=== PATIENT | male | born 1965 | race Caucasian/White ===

== ENCOUNTER 2025-04-22 11:50 | Outpatient (AMB) | payer OTHER, SELFPAY ==
--- NOTE | 2025-04-22 12:02 | MHC.PC.OV ---
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 [employer] Required: No Allergies Seasonal Allergies Allergy (Verified 04/22/25 12:07) Runny Nose Tobacco use date assessed: 04/22/25 Dental Screening Dental Screen Date: 04/22/25 Did you have a dental visit in the last 12 months?: Yes Did you have a dental problem in the last 6 months where you did not have access to dental care?: No Was dental information given to patient?: Patient has dentist HPI HPI Comments History of Present Illness Details 59-year-old male presents to establish care. Transferred from colleague in the practice. Taking Zyrtec, Arnuity and albuterol as needed for allergies and asthma. ADD, anxiety Patient has a psychiatrist through [facility]. He does have a therapist, but he has not [facility]rap[facility] is [facility]. He is on Ritalin and Lamictal. GERD-treated with omeprazole 20 mg daily. He had a colonoscopy at [facility] in August 2024. He had polyps and was told to return in 5 years. Maternal grandfather had colon cancer. Reports he had Shingrix vaccine in 2023. Patient seen at [facility] [place] for chronic left ankle pain. Received cortisone injections. He has ED. Saw urology. Patient had a coronary calcium CT on 09/03/2023, [place]at[place] 9. LDL 178. Patient has elevated liver enzymes. He was drinking more heavily for a few years. Now only drinking 1-2 bourbons per week. No abdominal pain. Prediabetes-hemoglobin A1c 5.8%. Patient had mildly decreased renal function. ROS: Constitutional: No unexplained weight loss, fever, chills, fatigue or night sweats. Respiratory: No shortness of breath Cardiovascular: No chest pain Neurologic: No headache, dizziness, syncope Physical exam: Constitutional: Alert, in no distress. Neck: Supple, Full range of motion. No lymphadenopathy. Respiratory: Clear to auscultation. Cardiovascular: S1 S2 regular. No murmurs Gastrointestinal: Abdomen soft, non-tender, non-distended. Normal bowel sounds. No palpable masses. Psychiatric: Normal mood and affect [facility] Medical History (Updated 04/23/25 @ 12:58 by GABY Estes) Pure hypercholesterolemia ADHD Colon polyp GERD (gastroesophageal reflux disease) Anxiety Encounter for special screening examination for neoplasm of prostate Rotator cuff injury Leg fracture Ankle fracture Tendinopathy of right biceps tendon Tendinopathy of left biceps tendon Stiffness of thumb joint Prediabetes Elevated liver enzymes Mild persistent asthma Allergic rhinitis Surgical History (Updated 04/22/25 @ 15:39 by Destini Rodney CMA) Hx of colonoscopy Family History (Updated 04/23/25 @ 12:54 by GABY Estes) Father Substance abuse Alcoholism Maternal Grandmother Breast cancer Maternal Grandfather Colon cancer Mother Breast cancer Social History (Updated 04/22/25 @ 12:12 by Destini Rodney CMA) Housing: Apartment Alcohol intake: current Patient Tobacco Use Status: Former Tobacco user Cigarette Packs Per Day: 1 Cigarettes Per Day: 15 Years Smoked: 4 e-Cigarette/Vaping Use: Currently Using Second Hand Smoke Exposure: No Substance Use Type: Marijuana service: No Current occupational status: unemployed Current occupational exposures/hazards: No Cognitive needs: No Hearing needs: No Vision needs: No Questionnaire PHQ-9 Over the last 2 weeks, how often have you been bothered by any of the following problems? 1. Little interest or pleasure in doing things: not at all 2. Feeling down, depressed, or hopeless: not at all 3. Trouble falling or staying asleep, or sleeping too much: not at all 4. Feeling tired or having little energy: not at all 5. Poor appetite or overeating: not at all 6. Feeling bad about yourself - or that you are a failure or have let yourself or your family down: not at all 7. Trouble concentrating on things, such as reading the newspaper or watching television: not at all 8. Moving or speaking so slowly that other people could have noticed. Or the opposite - being so fidgety or restless that you have been moving around a lot more than usual: not at all 9. Thoughts that you would be better off or of hurting yourself in some way: not at all Total score: 0 Depression Screening Interpretation: Negative Depression Screening Done: Yes 94016 - PHQ-9 Billing: Yes Source: Developed by Drs. Mal Rayo, Ivet Black, Douglas Lloyd and colleagues, with an educational arnulfo from [employer]. Thrive Questionnaire Date Thrive assessed: 04/22/25 I am a: Patient What is your living situation today?: I choose not to answer this question Within the past 12 months, did the food you bought not last and you didn't have the money to get more?: I choose not to answer this question Within the past 12 months, did you worry whether your food would run out before you got money to buy more?: I choose not to answer this question Do you have trouble paying for medicines?: I choose not to answer this question Do you have trouble getting transportation to medical appointments?: I choose not to answer this question Do you have trouble paying your heating and electricity bill?: I choose not to answer this question Do you have trouble taking care of your child, family member or friend?: I choose not to answer this question Do you have trouble with day-to-day activities such as bathing, preparing meals, shopping, managing finances, etc.?: I choose not to answer this question Are you currently unemployed and looking for a job?: I choose not to answer this question Are you interested in more education?: I choose not to answer this question Please select the resources that you would like help with: None Currently or been in a relationship where the following occur: No concerns reported THRIVE Score: 0 AUDIT C Alcohol Use Questionnaire (AUDIT-C) 1. How often do you have a drink containing alcohol?: 2-4 times a month 2. How many drinks containing alcohol do you have on a typical day when you are drinking?: 1 or 2 3. How often do you have six or more drinks on one occasion?: Never Total Score: 2 MATT-7 AMB Questionnaire MATT-7 Date MATT - 7 assessed: 04/22/25 Feeling nervous, anxious, or on edge: 0 = Not at all Not being able to stop or control worryin = Not at all Worrying too much about different things: 0 = Not at all Trouble relaxin = Not at all Being so restless that it is hard to sit still: 0 = Not at all Becoming easily annoyed or irritable: 1 = Several days Feeling afraid as if something awful might happen: 0 = Not at all Total MATT-7 score (0-4 normal; 5-9 mild; 10-14 moderate; 15-21 severe): 1 Source: Developed by Drs. Mal Rayo, Ivet Black, Douglas Lloyd and colleagues, with an educational arnulfo from [employer]. MATT-7 Assessment Billing MATT-7 Assessment Tool: MATT-7 Assessment 10183 Physical exam (Primary Care) Vital Signs: Last Vital Signs Temp 98.1 F 04/22/25 12:13 Pulse 74 04/22/25 12:13 Resp 16 04/22/25 12:13 BP 102/68 04/22/25 12:13 Pulse Ox 94 04/22/25 12:13 Oxygen Delivery Method Room Air 04/22/25 12:13 BMI result Body Mass Index 30.4 Tobacco/Smoking Status: Tobacco use Status Tobacco use date assessed 04/22/25 04/22/25 12:13 Patient Tobacco Use Status Former Tobacco user 04/22/25 12:13 e-Cigarette/Vaping Use Currently Using 04/22/25 12:13 PHQ-9: PHQ-9 Score PHQ-9: Total score 0 04/22/25 12:27 Depression Screening Interpretation: Negative Thrive Assessment: Date of Thrive Assessment Date Thrive assessed 04/22/25 04/22/25 12:06 Currently or been in a relationship where the following occur: No concerns reported Results Reviewed Results Reviewed: September 2024 reviewed lab results on phone cholesterol 262 Tg 146 LDL 178 glucose 93 Cr 1.4 GFR 55 ALT 60 AST 34 GGT 224 PSA 0.65 A1c 5.8% Coding Level of Care Code New Pt Level 4 (61060) Add On Problem Visit Only Diagnoses Seasonal allergic rhinitis due to other allergic trigger J30.89 Allergic rhinitis seasonality: seasonal Allergic rhinitis trigger: other Mild persistent asthma J45.30 Elevated liver enzymes R74.8 Prediabetes R73.03 ADHD F90.9 Pure hypercholesterolemia E78.00 Additional Codes MATT-7 Assessment Billing - MATT-7 Assessment Tool: MATT-7 Assessment 40530 ([id number]) PHQ-9 - 28934 - PHQ-9 Billing: Yes ([id number]) Assessment & Plan Assessment & Plan (1) Allergic rhinitis: Code(s): J30.9 - Allergic rhinitis, unspecified Category: Medical Qualifiers: Allergic rhinitis seasonality: seasonal Allergic rhinitis trigger: other Qualified Code(s): J30.89 - Other allergic rhinitis Plan: Refer to college president. Continue current regimen. (2) Mild persistent asthma: Code(s): J45.30 - Mild persistent asthma, uncomplicated Category: Medical Plan: Refer to college president. Continue current regimen. (3) Elevated liver enzymes: Code(s): R74.8 - Abnormal levels of other serum enzymes Category: Medical Plan: Recommended avoiding alcohol, decreasing processed foods and high-cholesterol foods. Recheck prior to physical exam. Check liver ultrasound. (4) Prediabetes: Code(s): R73.03 - Prediabetes Category: Medical Plan: Decrease carbohydrates and sugars and alcohol. Monitor. (5) ADHD: Code(s): F90.9 - Attention-deficit hyperactivity disorder, unspecified type Category: Medical Plan: Continue management per psychiatrist and therapist. (6) Pure hypercholesterolemia: Code(s): E78.00 - Pure hypercholesterolemia, unspecified Category: Medical Plan: We discussed elevated cholesterol is a risk factor for cardiovascular disease. He is considered low risk for this based on coronary CT scan. Recommended the Mediterranean diet and exercising regularly. Recheck cholesterol prior to physical exam. We discussed he may need medication to treat this. Need to repeat liver enzymes and have ultrasound done prior to initiating statin. If he has continued transaminitis we may need to consider an alternative such as Repatha or Praluent. Plan Schedule physical exam in September. Orders: Orders US abdomen cai w elastography 04/22/25 R74.8 - Abnormal levels of other serum enzymes Prostate Specific Antigen 04/22/25 R73.03 - Prediabetes, Z12.5 - Encounter for screening for malignant neoplasm of prostate TSH reflex Free T4 04/22/25 R73.03 - Prediabetes Lipid Panel 04/22/25 E78.5 - Hyperlipidemia, unspecified, R73.03 - Prediabetes Comprehensive Met. Panel 04/22/25 R73.03 - Prediabetes Complete Blood Count no Diff 04/22/25 R73.03 - Prediabetes Hemoglobin A1c 04/22/25 R73.03 - Prediabetes, R73.9 - Hyperglycemia, unspecified Referrals Allergy & Immunology Referral J30.9 - Allergic rhinitis, unspecified, J45.30 - Mild persistent asthma, uncomplicated
[2025-04-22 12:13] VITALS: BP 102/68; PULSE 74; RESP 16; TEMP 36.7; O2SAT 94; BMI 30.4
--- OUTSIDE RECORDS SUMMARY | 2025-04-22 15:43 | XMS_ITS | Clinical Summary ---
Author Organization [facility] Address [address] [facility] [address] [place] [address] Phone Care Team Providers Care Licensed Occupational Therapist Name Role Phone Zak Herron MD Unavailable [phone] Joe Ugarte MD Primary Care Provider Allergies Active Allergy Reactions Criticality Noted Date Comments Epinephrine 08/07/2017 Medications omeprazole (PRILOSEC) 20 MG capsule Take 1 capsule (20 mg total) by mouth daily. 90 capsule 3 0 Active Additional Information Patient not taking.Reported on 08/20/2023 dextroamphetamin e-amphetamine (ADDERALL) 15 mg Tab tablet Take 15 mg by mouth every morning. 1 Active albuterol 90 mcg/actuation inhalerIndicatio ns:Persistent cough Inhale 2 puffs into the lungs every 6 (six) hours as needed for wheezing. 1 Inhaler 1 Active Additional Information Patient not taking.Reported on 08/29/2022 triamcinolone acetonide 0.1 % creamIndications :Contact dermatitis, unspecified contact dermatitis type, unspecified trigger Apply topically 2 (two) times a day. Apply thin layer. No more than 2 wks. 30 g 3 Active Additional Information Patient not taking.Reported on 08/20/2023 oxyCODONE 5 MG immediate release tablet Take 1 tablet (5 mg total) by mouth every 4 (four) hours as needed. Partial fill okay upon patient request 20 tablet 03/14/202 4 Active Additional Information Patient not taking.Reported on 08/20/2023 tadalafiL (CIALIS) 5 MG tablet Take 1 tablet by mouth every morning. 4 Active loratadine (CLARITIN) 10 mg tabletIndication s:Allergic rhinitis, unspecified seasonality, unspecified trigger Take 1 tablet (10 mg total) by mouth daily. 90 tablet 4 4 Active atorvastatin (LIPITOR) 40 MG tablet Take 1 tablet (40 mg total) by mouth daily. 90 tablet 1 4 Active buPROPion (WELLBUTRIN XL) 150 MG ER 24 hr tablet Take 1 tablet (150 mg total) by mouth every morning. 90 tablet 3 4 Active lamoTRIgine (LAMICTAL) 150 MG IMMEDIATE release tablet Take 1 tablet (150 mg total) by mouth daily. 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 Mild intermittent asthma without complication Assessment & Plan (11/27/2017 4:57 PM EDT): Stable No need need for mdi Assessment & Plan (07/15/2017 3:05 PM EDT): torie mdi prn ETOH abuse 05/27/2017 Assessment & Plan (11/27/2017 4:56 PM EDT): Improved Assessment & Plan (07/15/2017 3:04 PM EDT): improved Assessment & Plan (05/27/2017 4:15 PM EST): Refer to counseling ADD (attention deficit disorder) 05/27/2017 Assessment & Plan (05/28/2018 4:48 PM EST): Stable Continue current treatment Assessment & Plan (11/27/2017 4:55 PM EDT): Stable Continue current treatment fu psych Assessment & Plan (05/27/2017 4:16 PM EST): Refer to psych Depression 05/27/2017 Assessment & Plan (05/27/2017 4:16 PM EST): No SI Refer to psych Immunizations Immunization Administration Dates Next Due COVID-19 (Pre-02/25) Moderna Vaccine, mRNA, PF 0 09/11/2020,08/14/2020 INFLUENZA, SPLIT VIRUS, TRIVALENT W/ PRESERVATIV E IM 03/30/2013 Influenza Quadrivalent MDCK Preservative Free IM 03/12/2022,02/23/2020 Influenza Quadrivalent Preservative Free IM 05/06 Influenza Quadrivalent w/ Preservative IM 2018 Influenza Recombinant Felicitas valent Preservative Free IM 02/17/2019 Td (adult),2 Lf Tetanus Toxoid, PF, Adsorbed Tdap 09/04/2018 Zoster recombinant 07/27/2022,03/12/2022 Family History Medical History Relation Comments Colon cancer Maternal Grandfather Skin cancer Maternal Uncle Breast cancer Mother Relation Status Comments Maternal Grandfather Maternal Uncle Mother Social History Tobacco Use Types Packs/Day Years Used Date Smoking Tobacco: Never Smokeless Tobacco: Never Tobacco Cessation:Counseling Given: Not Answered Alcohol Use Standard Drinks/Week Comments Yes 4 (1 standard drink = 0.6 oz pur e alcohol) Education Answer Date Recorded Are you interested in more education? Not on kurt e 08/30/2022 Are you concerned about learning? Not on file 08/30/2022 No 08/30/2022 No 08/30/2022 Digital Access Answer Date Recorded No 09/28/2022 No 09/28/2022 Reliable internet access at home? Not on file 09/28/2022 Device with a working camera? Not on file Sex and Gender Information Value Date Recorded Sex Assigned at Male 08/13/2020 9:22 AM EDT Legal Sex Male 5:49 PM EST Gender Identity Male 08/13/2020 9:22 AM EDT Sexual Orientation Straight 08/13/2020 9: 22 AM EDT Last Filed Vital Signs Vital Sign Reading Time Taken Comments Blood Pressure 136/82 08/21/2024 1:55 PM EDT Pulse 84 08/21/2024 1:55 PM EDT Temperature 35.8 C (96.4 F) 06/28/2020 9:26 AM EST Respiratory Rate - - Oxygen Saturation 98% 08/21/2024 1:55 PM EDT Inhaled Oxygen Concentration - - Weight 86.6 kg (191 lb) 08/21/2024 1:55 PM EDT Height 167.6 cm (5' 6 ) 08/21/2024 1:55 PM EDT Body Mass Index 30.83 08/21/2024 1:55 PM EDT Plan of Treatment Upcoming Encounters Date Type Department Care Team (Late st Contact Info) Description 09/23/2025 8:45 AM EDT Nurse Only [address] [address] 09/30/2025 10:00 AM EDT Office Visit [address] [address] Joe Ugarte MD [address] [place] [address] [email or web address] Health Maintenance Due Date Last Done Comments PNEUMOCOCCAL VACCINES (50+ years) (1 of 2 - PCV) 12/27/1986 COLOGUARD 12/27/2012 FIT TEST 12/27/2012 FOBT 12/27/2012 SIGMOIDOSCOPY 12/27/2012 VIRTUAL COLONOSCOPY 12/27/2012 RSV VACCINE (1 - Risk 50-74 years 1-dose series) 12/27/2017 INFLUENZA VACCINE (#1) 2024 2, 05/15/2021, 02/23/2020, Additional history exists COVID-19 VACCINE ( season) 2025 04/17/2021, 09/11/2020, 08/14/2020 DEPRESSION SCREENING 08/21/2025 08/21/2024, 08/22/19 25 SCREENING FOR DIABETES 08/06/2027 08/05/2024, 2024 Adult Td,Tdap Booster 09/04/2028 09/04/2018, 006 LIPID PANEL 08/05/2029 08/05/2024, 07/05, 06/29/2022, Additional history exists COLONOSCOPY 08/05/2034 08/05/2024 COLORECTAL CANCER SCREENING 08/05/2034 HEPATITIS C SCREENING Completed 10/22/2018 , 10/22/2018, 10/22/2018 HIV ONE-TIME SCREENING (18-65 YEARS) Completed 10/22/2018 ZOSTER VACCINES Completed 07/27/2022, 03/12/2022 SMOKING STATUS SCREENING (Once After 26 Yrs) Completed 03/19/2023 HEPATITIS A VACCINES Aged Out No long er eligible based on patient's age to complete this topic HIB VACCINES Aged Out No longer eligi ble based on patient's age to complete this topic MENINGOCOCCAL VACCINES (ACWY) Aged Out No longer eligible based on patient's age to complete this topic MENINGOCOCCAL VACCINES (B) Aged Out N o longer eligible based on patient's age to complete this topic Medical Devices Not on file Procedures Procedure Name Priority Date/Time Associated Diagnosis Comments ENDOSCOPY, COLON 08/05/2024 11:3 2 AM EDT LIPID PANEL Routine 08/05/2024 8:14 AM EDT Routine general medical examination at a health care facility LABORATORY/BLOOD BANK TEST - [facility] Routine 10/22/2018 4:49 PM EDT from Last 3 Months or Most Recently Relevant to Health Maintenance Results * ENDOSCOPY, COLON (08/05/2024 11:32 AM EDT) Narrative Procedure Note Veronika Lazo MD - 08/05/2024 11:32 AM EDT Patient Name: Misbah Salamanca Procedure Date No Time: 08/05/2024 Date of : 1965 Attending MD: Veronika Lazo MD, [id number] Procedure: Colonoscopy Indications: Screening in patient at increased risk: Familyhistory of a relative with colorectal cancer, agrandparent Providers: Veronika Lazo MD (Doctor) , Tiffanie Lane MD (Anesthesiologist) Medicines: Lidocaine 100 mgs, Propofol 230 mgs Complications: No immediate complications. Procedure: Pre-Anesthesia Assessment: - Prior to the procedure, a History and Physicalwas performed, and patient medications and allergieswere reviewed. The patient's tolerance of previous anesthesia was also reviewed. The risks andbenefits of the procedure and the sedation options and risks were discussed with the patient. All questions were answered, and informed consent was obtained. Prior Anticoagulants: The patient has taken noanticoagulant or antiplatelet agents. ASA Grade Assessment: II -A patient with mild systemic disease. After reviewing the risks and benefits, the patient was deemed in satisfactory condition to undergo the procedure. After I obtained informed consent, the scope was passed under direct vision. Throughout theprocedure, the patient's blood pressure, heart rate, rhythmand oxygen saturations were monitored continuously. The Colonoscope was introduced through the anus and advanced to the cecum, identified by appendiceal orifice and ileocecal valve. The colonoscopy was performed without difficulty. The patient tolerated the procedure well. The quality of the bowel preparation was adequate. The ileocecal valve, appendiceal orifice, and rectum werephotographed. Findings: A 5 mm polyp was found in the ascending colon. The polyp was sessile. The polyp was removed with a jumbo cold forceps. Resection andretrieval were complete. Internal hemorrhoids were found during endoscopy. The hemorrhoidswere Grade I (internal hemorrhoids that do not prolapse). The exam was otherwise without abnormality on direct and retroflexion views. Impression: - One 5 mm polyp in the ascending colon, removedwith a jumbo cold forceps. Resected and retrieved. - Internal hemorrhoids. - The examination was otherwise normal on directand retroflexion views. Recommendation: - Patient has a contact number available for emergencies. The signs and symptoms of potential delayed complications were discussed with thepatient. Return to normal activities tomorrow. Written discharge instructions were provided to thepatient. - High fiber diet. - Continue present medications. - Await pathology results. - Repeat colonoscopy date to be determined after pending pathology results are reviewed for surveillance. - Return to GI office PRN. Estimated Blood Loss: Estimated blood loss: none. Referring MD: Joe Ugarte Veronika Lazo MD 08/05/2024 12:00:36 PM This report has been electronically signed. Number of Addenda: 0 Diagnosis Code(s): --- Professional --- Z80.0, Family history of malignant neoplasm of digestive organs D12.2, Benign neoplasm of ascending colon K64.0, First degree hemorrhoids --- Technical --- Z80.0, Family history of malignant neoplasm of digestive organs D12.2, Benign neoplasm of ascending colon K64.0, First degree hemorrhoids Procedure Code(s): --- Professional --- 20762, Colonoscopy, flexible; with biopsy, single or multiple G8918, Patient without preoperative order for iv antibiotic surgical site infection (ssi) prophylaxis G8907, Patient documented not to have experienced any of thefollowing events: a burn prior to discharge, a fall within the facility, wrong site/side/patient/procedure/implant event, a hospital transfer or hospital admission upon discharge from the facility. --- Technical --- 92048, Colonoscopy, flexible; with biopsy, single or multiple G8918, Patient without preoperative order for iv antibiotic surgical site infection (ssi) prophylaxis G8907, Patient documented not to have experienced any of thefollowing events: a burn prior to discharge, a fall within the facility, wrong site/side/patient/procedure/implant event, a hospital transfer or hospital admission upon discharge from the facility. CPT copyright 2021 [employer]. All rights reserved. The codes documented in this report are preliminary and upon career center director reviewmay be revised to meet current compliance requirements. Joe Ugarte MD GI PROCEDURE ORDERABLES Final R esult * (ABNORMAL) Lipid panel (08/05/2024 8:14 AM EDT) Pathologist [facility] Cholesterol 262(H) <200 mg/dL [facility] Triglycerides 146 <150 mg/dL [facility] Cholesterol, HDL 55 >40 mg/dL [facility] LDL Cholesterol, Calculated 178(H) <129 mg/dL [facility] Cholesterol/HDL Ratio 4.76 <4.96 [facility] Blood 08/05/2024 8:14 AM EDT 08/05/2024 10:55 AM EDT Narrative Resulting Agency Comment No Irving Alejandro PA-C LAB BLOOD BKR ORDERABLES Fin al Result [facility] [address] [facility] [address] [place] [address], [facility] * Laboratory/Blood Bank Test - [facility] (10/22/2018 4:49 PM EDT) Pathologist [facility] HEPATITIS A IGM NON-REACT FELI NON-REACT [facility] Comment:Performed at: [facility], [address] [place] [address],[facility] [place], [address], Purchasing Officer: SASCHA EAST MD HEPATITIS B SURFACE ANTIGEN NON-REACT FELI NON-REACT FELI [facility] Comment:Performed at: [facility], [address],[place], [address], Purchasing Officer: SASCHA EAST MD HEPATITIS B CORE IGM ANTIBODY NON-REACT FELI NON-REACT FELI [facility] Comment:Performed at: [facility], [address],[place], [address], Purchasing Officer: SASCHA EAST MD HEPATITIS C ANTIBODY NON-REACT FELI NON-REACT FELI [facility] Comment:Performed at: [facility], [address], [place], [address], Purchasing Officer: SASCHA EAST MD SIGNAL TO CUT-OFF 0.01 <1.00 [facility] Comment: HCV antibody was non-reactive. There is no laboratory evidence of HCV infection. In most cases, no further action is required. However, if recent HCV exposure is suspected, a test for HCV RNA (test code 40665) is suggested. For additional information please refer to http://education.[employer]/faq/FSQ94n0 (This link is being provided for informational/ educational purposes only.) Testing performed at: [facility], [address], [place], [address], Purchasing Officer: SASCHA EAST MD 10/22/2018 4:49 PM EDT 10/22/2018 4:49 PM EDT Narrative [facility] - 10/28/2018 12:15 PM EDT Unless otherwise noted, Testing performed through [facility], [place] [address] Jasen Ash, PhD, Gas Operator No Ari Foley MD LAB BLOOD ORDERABLES [place] [address] from Last 3 Months or Most Recently Relevant to Health Maintenance Insurance [facility] OUT OF STATE [facility] [place] [address] [place] [address] [address] [place] [address] [place] [address] OUT [facility] OUT [facility] OUT OF STATE PPO [facility] OUT OF [facility] PPO Care Teams Licensed Occupational Therapist Relationship Specialty Start Date End Date Joe Ugarte MD [address] [place] [id number] PCP - General Internal Medicine 03/24/20 Zak Herron MD Dermatology 08/02/17 Additional Source Comments The information contained in this document represents components of the legal health record. It is not the complete legal health record.[facility]
--- OUTSIDE RECORDS SUMMARY | 2025-04-22 15:43 | XMS_ITS | Encounter Summary ---
Author Organization [facility] Address [address] [place] [address] [place] [address] Phone Care Team Providers Care Data Analytics Specialist Name Role Phone Zak Herron MD Unavailable Joe Ugarte MD Primary Care Provider [phone] Joe Ugarte MD Unavailable [phone] Amanda Wu MD Unavailable [phone] Encounter Details Date Type Department Care Team (Late st Contact Info) Description 08/08/2022 Prep for Surgery Orthopedics [address] [address] Ovidio Dempsey PA-C [address] [place] [address] [email or web address] Social History Tobacco Use Types Packs/Day Years Used Date Smoking Tobacco: Never Smokeless Tobacco: Never Alcohol Use Standard Drinks/Week Comments Yes 4 (1 standard drink = 0.6 oz pur e alcohol) Sex and Gender Information Value Date Recorded Sex Assigned at Male 08/13/2020 9:22 AM EDT Legal Sex Male 5:49 PM EST Gender Identity Male 08/13/2020 9:22 AM EDT Sexual Orientation Straight 08/13/2020 9: 22 AM EDT documented as of this encounter H&P Notes * Ovidio Dempsey PA-C - 08/08/2022 1:00 PM EDT Patient was seen and evaluated by Dr. Osman Cole on 08/06/22. Portions of this document wereformulated using office visit notes transcribed by Dr. Osman Cole on 08/06/22 in preparationfor upcoming surgical procedure. The patient is a 56-year-old male status post right shoulder subacromial decompression and biceps tenodesis. Date of surgery: 05/10/2022. He is three months postop. He is doing well. He has minimal complaints of pain. He is able to sleep on his right side. He has one more visit to physical therapy.Most of his complaints center around his left shoulder. He has a similar problem on the left side. This has been managed nonsurgically but he is getting frustrated with it. 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 Patient Active Problem List Diagnosis ??? ETOH abuse ??? ADD (attention deficit disorder) ??? Depression ??? Mild intermittent asthma without complication ??? Acral type peeling skin syndrome ??? INDU (obstructive sleep apnea) Past Medical History: Diagnosis Date ??? Asthma ??? Attention deficit hyperactivity disorder (ADHD) ??? Major depressive disorder Past Surgical History: Procedure Laterality Date ??? ANKLE FRACTURE SURGERY ??? ANKLE SURGERY Current Outpatient Medications on File Prior to Visit Medication Sig Dispense Refill Last Dispense ??? albuterol 90 mcg/actuation inhaler Inhale 2 puffs into the lungs every 6 (six) hours as needed for wheezing. 1 Inhaler 0 Unknown (outside pharmacy) ??? amoxicillin-clavulanate (AUGMENTIN) 875-125 mg per tablet TAKE 1 TABLET BY MOUTH TWICE DAILY UNTIL GONE Unknown (patient-reported) ??? buPROPion (WELLBUTRIN XL) 150 MG ER 24 hr tablet Take 150 mg by mouth every morning. Unknown (patient-reported) ??? dextroamphetamine-amphetamine (ADDERALL) 15 mg Tab tablet Take 15 mg by mouth every morning. Unknown (patient-reported) ??? diclofenac sodium (VOLTAREN) 75 MG EC tablet TAKE 1 TABLET(75 MG) BY MOUTH TWICE DAILY 60 tablet 0 Unknown (outside pharmacy) ??? lamoTRIgine (LAMICTAL) 150 MG tablet Take 150 mg by mouth daily. Unknown (patient-reported) ??? loratadine (CLARITIN) 10 mg tablet Take 1 tablet (10 mg total) by mouth daily. 90 tablet 4 Unknown (outside pharmacy) ??? omeprazole (PRILOSEC) 20 MG capsule Take 1 capsule (20 mg total) by mouth daily. 90 capsule 3 Unknown (outside pharmacy) ??? ondansetron (ZOFRAN) 4 MG tablet Take 1 tablet (4 mg total) by mouth every 8 (eight) hours as needed for nausea. 20 tablet 1 Unknown (outside pharmacy) ??? oxyCODONE 5 MG immediate release tablet Take 1 tablet (5 mg total) by mouth every 4 (four) hours as needed. Patient may request partial fill 30 tablet 0 Unknown (outside pharmacy) ??? prochlorperazine (COMPAZINE) 10 MG tablet Take 1 tablet (10 mg total) by mouth every 6 (six) hours as needed (for nausea/vomiting related to pain medication after surgery). 20 tablet 1 Unknown (outside pharmacy) No current facility-administered medications on file prior to visit. Allergies Allergen Reactions ??? Epinephrine ?? Physical Examination: Right shoulder: He has full forward flexion and abduction, internally rotating to the mid back, negative liftoff. Excellent strength on rotator cuff muscle testing, otherwise neurovascularly intact. Left shoulder: He has near full forward flexion and abduction, internally rotating to just above the belt line, negative liftoff. He has laterally-based arm pain. He has a positive Neer, some tenderness on supraspinatus muscle testing and a positive O???Ronen???s. Imaging:?MRI available for review from [facility] dated 01/02/2022: MRI of both shoulders reveals a subacromial spur. There is evidence of bursitis, there is evidence of rotator cuff tendinopathy, possible partial-thickness articular- sided tearing. No evidence of biceps tendon pathology. There is AC joint arthritis, and spur formation on the inferior aspect of the clavicle. ?? Assessment: 1. Right shoulder status post biceps tenodesis and subacromial decompression 05/10/2022, three months. 2. Left shoulder SLAP tear with subacromial spur. ?? Plan: The natural history of both disorders was discussed with the patient at length. His questionswere answered in full. MRI images were reviewed with him as well. As for the right shoulder, he is doing great. He will finish out physical therapy and transition to an independent program. He is cleared for full use as of 09/07/2022. From a right shoulder perspective he is nearly fully recovered. A s for the left side, he has an MRI which shows a subacromial spur and a possible superior labral tear. He feels the symptoms are very similar and his physical exam supports this. I would recommend surgery, specifically a left shoulder arthroscopy, subacromial decompression, and probable biceps tenodesis. The risks and benefits of surgery, the procedure itself, and the recovery time were explainedto the patient. Once again, he is very familiar with the procedure. I will schedule the surgery to be done as soon as possible. The best contact number is [phone]. documented in this encounter Plan of Treatment Upcoming Encounters Date Type Department Care Team (Late st Contact Info) Description 09/23/2025 8:45 AM EDT Nurse Only [address] [address] 09/30/2025 10:00 AM EDT Office Visit [address] [address] Joe Ugarte MD [address] [place] [phone] [email or web address] documented as of this encounter Visit Diagnoses Not on filedocumented in this encounter Additional Health Concerns Assessment Noted Time PHQ-9 Depression Total Score: 1 07/13/19 23 2:38 PM EST PHQ-2 Depression Total Score: 0 07/13/19 23 2:38 PM EST documented as of this encounter Care Teams Data Analytics Specialist Relationship Specialty Start Date End Date Joe Ugarte MD [address] [place] [address] [email or web address] PCP - General Internal Medicine 03/24/20 Zak Herron MD [email or web address] Dermatology 08/02/17 Joe Ugarte MD [address] [place] [address] [email or web address] Insurance Assigned Provider 08/10/23 11/14/24 Amanda Wu MD [address] [place] [address] [email or web address] Insurance Assigned Provider 12/12/24 01/09/25 documented as of this encounter Additional Source Comments The information contained in this document represents components of the legal health record. It is not the complete legal health record.[facility]
--- OUTSIDE RECORDS SUMMARY | 2025-04-22 15:43 | XMS_ITS | Encounter Summary ---
Author Organization Located Within [facility] Address [address] [facility] [address] [place] [address] Phone Care Team Providers Care Railcar Switchman Name Role Phone Zak Herron MD Unavailable oJe Ugarte MD Primary Care Provider [phone] Joe Ugarte MD Unavailable [phone] Amanda Wu MD Unavailable [phone] Encounter Details Date Type Department Care Team (Late st Contact Info) Description 08/30/2023 Procedure [facility] - [facility] [address] [facility], [address]th [place] [address] Social History Tobacco Use Types Packs/Day Years [...] AM EDT documented as of this encounter Plan of Treatment Upcoming Encounters Date Type Department Care Team (Late st Contact Info) Description 09/23/2025 8:45 AM EDT Nurse Only [facility] [address] [place] [address] 09/30/2025 10:00 AM EDT Office Visit [facility] [address] [place] [address] Joe Ugarte MD [address] [place] [address] [email or web address] documented as of this encounter Visit Diagnoses Not on filedocumented in this encounter Additional Health Concerns Assessment Noted Time PHQ-9 Depression Total Score: 2 08/20/19 3:10 PM EDT PHQ-2 Depression Total Score: 0 08/20/19 3:10 PM EDT documented as of this encounter Care Teams Railcar Switchman Relationship Specialty Start Date End Date Joe Ugarte MD [address] [place] [id number] [email or web address] PCP - General Internal Medicine 03/24/20 Zak Herron MD Dermatology 08/02/17 Joe Ugarte MD [address] [place] [address] [email or web address] Insurance Assigned Provider 08/10/23 11/14/24 Amanda Wu MD [address] [place] [address] [email or web address] Insurance Assigned Provider 12/12/24 01/09/25 documented as of this encounter Additional Source Comments The information contained in this document represents components of the legal health record. It is not the complete legal health record.Located [facility]
--- OUTSIDE RECORDS SUMMARY | 2025-04-22 15:43 | XMS_ITS | Encounter Summary ---
Author Organization [facility] Address [address] [place] [address] [place] [address] Phone Care Team Providers Care Nurse Emergency Name Role Phone Zak Herron MD Unavailable Joe Ugarte MD Primary Care Provider [phone] Joe Ugarte MD Unavailable [phone] Amanda Wu MD Unavailable [phone] Encounter Details Date Type Department Care Team (Late st Contact Info) Description 09/20/2023 Procedure [facility] - CT, [address] [place] [address] Social History Tobacco Use Types Packs/Day Years [...] Description 09/23/2025 8:45 AM EDT Nurse Only [facility] [address] [place] [address] 09/30/2025 10:00 AM EDT Office Visit [facility] [address] [place] [address] Joe Ugarte MD [address] [place] [address] [email or web address] documented as of this encounter Visit Diagnoses Not on filedocumented in this encounter Additional Health Concerns Assessment Noted Time PHQ-9 Depression Total Score: 2 08/20/19 3:10 PM EDT PHQ-2 Depression Total Score: 0 08/20/19 3:10 PM EDT documented as of this encounter Care Teams Nurse Emergency Relationship Specialty Start Date End Date Joe Ugarte MD [address] [place] [address] [email or web address] PCP - General Internal Medicine 03/24/20 Zak Herron MD Dermatology 08/02/17 Joe Ugarte MD [address] [place] [phone] [email or web address] Insurance Assigned Provider 08/10/23 11/14/24 Amanda Wu MD [address] [place] [address] [email or web address] Insurance Assigned Provider 12/12/24 01/09/25 documented as of this encounter Additional Source Comments The information contained in this document represents components of the legal health record. It is not the complete legal health record.[facility]
--- OUTSIDE RECORDS SUMMARY | 2025-04-22 15:43 | XMS_ITS | Encounter Summary ---
Author Organization [facility] Address [address] [place] [address] [place] [address] Phone Care Team Providers Care Vulcanizer Name Role Phone Zak Herron MD Unavailable [phone] Joe Ugarte MD Primary Care Provider [phone] Joe Ugarte MD Unavailable [phone] Amanda Wu MD Unavailable [phone] Reason for Referral * MRI/CAT Scan - Closed Specialty Diagnoses / Procedures Referred By Ann cardenas Referred To Contact Radiology Diagnoses Mixed hyperlipidemia Arteriosclerosis Procedures CT Cardiac Calcium Scoring CHG CT HEART W/O CONTRAST QUANT EVAL CORONARY CALCIUM Irving Alejandro PA-C Phone: tel: fax: mailto:[email or web address] Referral ID Status Reason Start Date Expiration Date Visits Re quested Visits Authorized [id number] Closed 08/30/2023 09/28/2023 1 1 Encounter Details Date Type Department Care Team (Latest Contact Info) Description 08/30/2023 Ancillary Orders [facility] [place] [place] [address] [employer] [address] [place] [address] Irving Alejandro PA-C [address] [place] [address] [email or web address] Mixed hyperlipidemia (Primary Dx); Arteriosclerosis Social History Tobacco Use Types Packs/Day Years [...] Description 09/23/2025 8:45 AM EDT Nurse Only [address] [address] 09/30/2025 10:00 AM EDT Office Visit [address] [address] Joe Ugarte MD [address] [place] [address] [email or web address] documented as of this encounter Results * CT Cardiac Calcium Scoring (09/03/2023 2:05 PM EDT) Anatomical Region Laterality Modality Heart Computed Tomogra phy 09/03/2023 3:41 PM EDT Impressions 09/03/2023 3:47 PM EDT * There is a minimal amount of calcified coronary plaque. The overall coronary artery calcium score is 9. Calculators to estimate 10-year coronary heart disease risk based on coronary artery calcium (CAC), and percentiles available at: https://internal.[facility].org/about/procedures/tools/lyh-kwgpk-rmxtixqsh-value s Narrative 09/03/2023 3:47 PM EDT TECHNIQUE: Multiple axial non-enhanced ECG-triggered CT images through the heart from the level of the pulmonary artery to the cardiac apex were obtained according to standard department protocol. Calcium scoring was performed according to the Agatston method by manual segmentation on an independent workstation. COMPARISON: None FINDINGS: The coronary arteries arise in normal position and have a normal course. CALCIUM SCORE: The observed Agatston Calcium Score of 9 is at percentile 52% for subjects of the same age, gender, and race/ethnicity who are free of clinical cardiovascular disease and treated diabetes. The Agatston score for each vessel is as follows: Left Main: 0 Left Anterior Descendin Left Circumflex: 4 Right Coronary Artery: 0 The right and left ventricular chambers are of normal position and size. The cardiac valves are not calcified. The ascending thoracic aorta measures 3.4 cm. The descending thoracic aorta measures 2.7 cm. The visualized portions of the lung, pleura, mediastinum, bones and chest wall are within normal limits. Procedure Note Tierney Crowell MD - 09/03/2023 TECHNIQUE: Multiple axial non-enhanced ECG-triggered CT images through the heart fromthe level of the pulmonary artery to the cardiac apex were obtainedaccording to standard department protocol. Calcium scoring was performed according to the Agatston method by manualsegmentation on an independent workstation. COMPARISON: None FINDINGS: The coronary arteries arise in normal position and have a normal course. CALCIUM SCORE: The observed Agatston Calcium Score of 9 is at arcemojvcu55% for subjects of the same age, gender, and race/ethnicity who are freeof clinical cardiovascular disease and treated diabetes. The Agatston score for each vessel is as follows: Left Main: 0 Left Anterior Descendin Left Circumflex: 4 Right Coronary Artery: 0 The right and left ventricular chambers are of normal position and size. The cardiac valves are not calcified. The ascending thoracic aorta measures 3.4 cm. The descending thoracicaorta measures 2.7 cm. The visualized portions of the lung, pleura, mediastinum, bones and chestwall are within normal limits. IMPRESSION: * There is a minimal amount of calcified coronary plaque. The overallcoronary artery calcium score is 9. Calculators to estimate 10-year coronary heart disease risk based oncoronary artery calcium (CAC), and percentiles available at:https://internal.[facility].org/about/procedures/tools/ewk-rnmfk-bxpvqbdll-in mari Irving Alejandro PA-C IMG CT CARDIAC Final Result documented in this encounter Visit Diagnoses Diagnosis Mixed hyperlipidemia- Primary Arteriosclerosis Generalized and unspecified atherosclerosis Mixed hyperlipidemia Arteriosclerosis Generalized and unspecified atherosclerosis documented in this encounter Additional Health Concerns Assessment Noted Time PHQ-9 Depression Total Score: 2 08/20/19 3:10 PM EDT PHQ-2 Depression Total Score: 0 08/20/19 3:10 PM EDT documented as of this encounter Care Teams Vulcanizer Relationship Specialty Start Date End Date Joe Ugarte MD [address] [place] [address] PCP - General Internal Medicine 03/24/20 Zak Herron MD Dermatology 08/02/17 Joe Ugarte MD [address] [place] [address] [email or web address] Insurance Assigned Provider 08/10/23 11/14/24 Amanda Wu MD [address] [place] [address] Insurance Assigned Provider 12/12/24 01/09/25 documented as of this encounter Additional Source Comments The information contained in this document represents components of the legal health record. It is not the complete legal health record.[facility]
== END 2025-04-22 12:52 | disposition home or self-care (01) ==
LOC: HO.HMCFM 11:51
PROVIDERS: PCP Physician Assistant Medical; Visit Provider Physician Assistant Medical
DX: J30.89 Other allergic rhinitis (principal); J45.30 Mild persistent asthma, uncomplicated; R74.8 Abnormal levels of other serum enzymes; R73.03 Prediabetes; F90.9 Attention-deficit hyperactivity disorder, unspecified type; E78.00 Pure hypercholesterolemia, unspecified

== ENCOUNTER → 2025-04-22 11:50 | Outpatient (BNVA) | payer OTHER, SELFPAY | PROVIDERS: Visit Provider Physician Assistant Medical | DX: J45.30 Mild persistent asthma, uncomplicated (principal); J30.89 Other allergic rhinitis; R73.03 Prediabetes; R74.8 Abnormal levels of other serum enzymes; E78.00 Pure hypercholesterolemia, unspecified; F90.9 Attention-deficit hyperactivity disorder, unspecified type; F41.9 Anxiety disorder, unspecified; U07.0 Vaping-related disorder; Z76.89 Persons encountering health services in other specified circumstances; Z80.3 Family history of malignant neoplasm of breast; Z80.0 Family history of malignant neoplasm of digestive organs; Z13.31 Encounter for screening for depression; Z13.39 Encounter for screening examination for other mental health and behavioral disorders | CPT/HCPCS: 96127 ==